=== PATIENT | female | born 2000 | race Caucasian/White ===

== ENCOUNTER 2018-02-26 10:58 | Emergency (ER) | payer OTHER ==
[2018-02-26 11:54] LABS: BASO % 0.2 % (0.0-1.0); EOS # 0.1 10^3/uL (0.0-0.50); EOS % 1.3 % (0.0-3.0); HEMATOCRIT 37.1 % (36.0-47.0); HEMOGLOBIN 12.5 g/dl (12.0-15.5); IMMATURE GRANULOCYTE % 0.2 % (0-3.0); LYMPH # 1.9 10^3/uL (1.5-6.5); LYMPH % 40.5 % (24.0-44.0); MEAN CORPUSCULAR HGB CONC 33.7 g/dl (32.0-36.5); MEAN CORPUSCULAR VOLUME 89.2 fl (80.0-96.0); MONO # 0.3 10^3/uL (0.0-0.8); MONO % 6.9 % (0.0-5.0); NEUTROPHILS # 2.4 10^3/uL (1.8-7.7); NEUTROPHILS % 50.9 % (36.0-66.0); PLATELET COUNT, AUTOMATED 226 10^3/uL (150-450); RED BLOOD COUNT 4.16 10^6/uL (4.00-5.40); RED CELL DISTRIBUTION WIDTH 12.6 % (11.5-14.5); WHITE BLOOD COUNT 4.8 10^3/uL (4.0-10.0)
[2018-02-26 12:32] LABS: ALBUMIN 4.2 GM/DL (3.2-5.2); ALBUMIN/GLOBULIN RATIO 1.35 (1.00-1.93); ALKALINE PHOSPHATASE 50 U/L (45-117); ALT/SGPT 23 U/L (12-78); ANION GAP 9 MEQ/L (8-16); AST/SGOT 20 U/L (7-37); BILIRUBIN,DIRECT 0.1 MG/DL (0.0-0.2); BILIRUBIN,TOTAL 0.3 MG/DL (0.2-1.0); BLOOD UREA NITROGEN 11 MG/DL (7-18); CALCIUM LEVEL 8.7 MG/DL (8.5-10.1); CARBON DIOXIDE LEVEL 28 MEQ/L (21-32); CHLORIDE LEVEL 106 MEQ/L (98-107); CK-MB VALUE MASS < 1.0 NG/ML (<3.6); CPK CREATINE PHOSPHOKINASE 52 U/L (26-192); CREATININE FOR GFR 0.68 MG/DL (0.55-1.30); GLUCOSE, FASTING 68 MG/DL (70-100); LIPASE 167 U/L (73-393); MB/CK RELATIVE INDEX 1.92 (< OR =4); POTASSIUM SERUM 3.9 MEQ/L (3.5-5.1); SODIUM LEVEL 143 MEQ/L (136-145); TOTAL PROTEIN 7.3 GM/DL (6.4-8.2); TROPONIN I < 0.02 NG/ML (< 0.10)
[2018-02-26] MEDS: NS 1,000 ML IV (12:41)
[2018-02-26 13:04] LABS: KETONE, URINE AUTO RFX NEGATIVE (NEGATIVE); LEUKOCYTE ESTERASE UR AUTO RFX NEGATIVE (NEGATIVE); NITRITE, URINE AUTO RFX NEGATIVE (NEGATIVE); RBC, URINE AUTO RFX 1 /HPF (0-3); SPECIFIC GRAVITY UR AUTO RFX 1.017 (1.002-1.035); SQUAM EPITHELIAL CELL UR AURFX 2 /HPF (0-6); WBC, URINE AUTO RFX 1 /HPF (0-3)
[2018-02-26] MEDS: GI COCKTAIL 50ML BTL(HYOSCYAMINE/MAALOX/LIDOCAINE VISCOUS)(1:3:1) PO (13:40)
== END 2018-02-26 14:52 | disposition home or self-care (01) ==
LOC: M ED 10:58
DX: R10.13 Epigastric pain (principal); R42 Dizziness and giddiness; I45.19 Other right bundle-branch block; F17.210 Nicotine dependence, cigarettes, uncomplicated
CPT/HCPCS: 71046

== ENCOUNTER 2018-06-24 09:19 | Emergency (ER) | payer OTHER ==
[~2018-06-24] VITALS: Ht 165.1 cm; Wt 54.5 kg
[2018-06-24 09:20] VITALS: BP 115/58
--- NOTE | 2018-06-24 10:16 | REP ---
Clinical: Trauma. Technique: AP, lateral, bilateral oblique views left hand . Findings: The osseous structures and joint spaces are intact and normal. There is no evidence for acute fracture or dislocation. Surrounding soft tissues are unremarkable. No subcutaneous emphysema or radiodense foreign body. Impression: Normal left hand series . No acute fracture or dislocation. Electronically Signed by Will Prasad MD 06/24/2018 10:08 A
== END 2018-06-24 10:14 | disposition home or self-care (01) ==
LOC: M ED 09:19
DX: S60.222A Contusion of left hand, initial encounter (principal); W10.8XXA Fall (on) (from) other stairs and steps, initial encounter; Y92.89 Other specified places as the place of occurrence of the external cause; F17.210 Nicotine dependence, cigarettes, uncomplicated

== ENCOUNTER 2018-11-24 20:24 | Emergency (ER) | payer OTHER ==
[~2018-11-24] VITALS: Ht 165.1 cm; Wt 59.1 kg
[2018-11-24 20:25] VITALS: BP 114/59
[2018-11-24] MEDS ORDERED: PREN1TAB11 PO (20:31)
[2018-11-24] MEDS ORDERED: KEFL500C17 PO (21:04)
[2018-11-24] MEDS ORDERED: CEPHALEXIN 500 MG CAP PO ONE (21:15)
== END 2018-11-24 21:17 | disposition home or self-care (01) ==
LOC: M ED 20:24
DX: O23.41 Unspecified infection of urinary tract in pregnancy, first trimester (principal); Z3A.01 Less than 8 weeks gestation of pregnancy; Z79.899 Other long term (current) drug therapy

== ENCOUNTER 2019-01-11 21:00 | Emergency (ER) | payer OTHER ==
[~2019-01-11] VITALS: Ht 165.1 cm; Wt 56.8 kg
[~2019-01-11 21:00] MED LIST: KEFL500C17 PO; PREN1TAB11 PO
[2019-01-11] MEDS ORDERED: UNIS25TA3 (21:06)
[2019-01-11] MEDS ORDERED: NS 1,000 ML IV ONE (23:00)
[2019-01-11 23:19] LABS: HEMATOCRIT 33.9 % (36.0-47.0); HEMOGLOBIN 11.9 g/dl (12.0-15.5); MEAN CORPUSCULAR HEMOGLOBIN 31.2 pg (27.0-33.0); MEAN CORPUSCULAR HGB CONC 35.1 g/dl (32.0-36.5); MEAN CORPUSCULAR VOLUME 88.7 fl (80.0-96.0); PLATELET COUNT, AUTOMATED 223 10^3/uL (150-450); RED BLOOD COUNT 3.82 10^6/uL (4.00-5.40); WHITE BLOOD COUNT 9.1 10^3/uL (4.0-10.0)
[2019-01-11 23:24] LABS: APPEARANCE, URINE CLEAR (CLEAR); BACTERIA, URINE AUTO 1+ (NEGATIVE); BILIRUBIN, URINE AUTO NEGATIVE (NEGATIVE); BLOOD, URINE BLOOD NEGATIVE (NEGATIVE); COLOR, URINE STRAW (YELLOW); GLUCOSE, URINE (UA) AUTO NEGATIVE (NEGATIVE); KETONE, URINE AUTO NEGATIVE (NEGATIVE); LEUKOCYTE ESTERASE, URINE AUTO NEGATIVE (NEGATIVE); NITRITE, URINE AUTO NEGATIVE (NEGATIVE); PROTEIN, URINE AUTO NEGATIVE (NEGATIVE); RBC, URINE AUTO 1 /HPF (0-3); SPECIFIC GRAVITY URINE AUTO 1.004 (1.002-1.035); SQUAMOUS EPITHELIAL CELL UR AU 2 /HPF (0-6); UROBILINOGEN, URINE AUTO 0.2 mg/dL (0.0-2.0); WBC, URINE AUTO 2 /HPF (0-3)
[2019-01-11 23:50] LABS: ALBUMIN 3.5 GM/DL (3.2-5.2); ALT/SGPT 27 U/L (12-78); BILIRUBIN,TOTAL < 0.1 MG/DL (0.2-1.0); BLOOD UREA NITROGEN 6 MG/DL (7-18); CALCIUM LEVEL 8.9 MG/DL (8.5-10.1); CARBON DIOXIDE LEVEL 26 MEQ/L (21-32); CHLORIDE LEVEL 107 MEQ/L (98-107); CREATININE FOR GFR 0.48 MG/DL (0.55-1.30); GLUCOSE, FASTING 99 MG/DL (70-100); POTASSIUM SERUM 3.6 MEQ/L (3.5-5.1); SODIUM LEVEL 139 MEQ/L (136-145); TOTAL PROTEIN 6.5 GM/DL (6.4-8.2)
--- NOTE | 2019-01-11 23:51 | REPVR ---
EXAM: US First Trimester, Transabdominal EXAM DATE/TIME: 01/11/2019 11:39 PM CLINICAL HISTORY: 18 years old, female; Injury or trauma; Fall; Initial encounter; Sprain or strain; Lower; ; Additional info: 13wks preg/fall/ back pn/cramping TECHNIQUE: Imaging protocol: Real-time transabdominal obstetrical ultrasound of the maternal pelvis and a first trimester , less than 14 weeks 0 days, with image documentation. COMPARISON: No relevant prior studies available. FINDINGS: GESTATION: Gestation: Single gestational sac in the uterus. Single fetus demonstrated. Heart rate: cardiac activity is 160 beats per minute. Placenta: Posterior placenta. Amniotic fluid: Amniotic and chorionic fluid are normal for gestational age. BIOMETRY: Estimated gestational age: Gestational age based on LMP of 10/06/2018 is 13 weeks 6 days which is compatible with ultrasound measurements. Banner-Rump length: Banner-rump length measures 7.9 cm. MATERNAL: Uterus: Unremarkable. Cervix: Unremarkable. Right adnexa: Unremarkable. Left adnexa: Unremarkable. Intraperitoneal: No intraperitoneal free fluid. IMPRESSION: Unremarkable scan at 13 weeks 6 days with concordant clinical dates and ultrasound measurements. Detailed anatomic structural survey can be performed between 19 and 20 weeks if clinically desired. Electronically signed by: Raúl Brooks On 01/11/2019 23:51:04 PM
[2019-01-12 01:02] VITALS: BP 118/65
== END 2019-01-12 01:08 | disposition home or self-care (01) ==
LOC: M ED 21:00
DX: S30.0XXA Contusion of lower back and pelvis, initial encounter (principal); W01.10XA Fall on same level from slipping, tripping and stumbling with subsequent striking against unspecified object, initial encounter; Y92.830 Public park as the place of occurrence of the external cause; Y93.31 Activity, mountain climbing, rock climbing and wall climbing; Y99.9 Unspecified external cause status; Z3A.13 13 weeks gestation of pregnancy; R10.2 Pelvic and perineal pain; R10.13 Epigastric pain; Z79.899 Other long term (current) drug therapy

== ENCOUNTER 2019-02-06 19:49 | Emergency (ER) | payer OTHER ==
[~2019-02-06] VITALS: Ht 165.1 cm; Wt 57.7 kg
[~2019-02-06 19:49] MED LIST changes: +UNIS25TA3
[2019-02-06] MEDS ORDERED: PYRI25TA2 PO (19:56)
[2019-02-06] MEDS ORDERED: METOCLOPRAMIDE INJ 10MG/2ML VIAL (J2765) IV ONE (20:30)
[2019-02-06] MEDS ORDERED: NS 1,000 ML IV ONE (20:30)
[2019-02-06 20:55] LABS: HEMATOCRIT 35.1 % (36.0-47.0); HEMOGLOBIN 12.2 g/dl (12.0-15.5); MEAN CORPUSCULAR HGB CONC 34.8 g/dl (32.0-36.5); MEAN CORPUSCULAR VOLUME 89.3 fl (80.0-96.0); PLATELET COUNT, AUTOMATED 242 10^3/uL (150-450); RED BLOOD COUNT 3.93 10^6/uL (4.00-5.40); WHITE BLOOD COUNT 7.6 10^3/uL (4.0-10.0)
[2019-02-06 21:27] LABS: BLOOD UREA NITROGEN 6 MG/DL (7-18); CARBON DIOXIDE LEVEL 25 MEQ/L (21-32); CHLORIDE LEVEL 106 MEQ/L (98-107); CREATININE FOR GFR 0.46 MG/DL (0.55-1.30); GLUCOSE, FASTING 73 MG/DL (70-100); POTASSIUM SERUM 3.9 MEQ/L (3.5-5.1); SODIUM LEVEL 138 MEQ/L (136-145)
[2019-02-06 22:09] LABS: APPEARANCE, URINE CLEAR (CLEAR); BACTERIA, URINE AUTO 1+ (NEGATIVE); BILIRUBIN, URINE AUTO NEGATIVE (NEGATIVE); BLOOD, URINE BLOOD NEGATIVE (NEGATIVE); COLOR, URINE YELLOW (YELLOW); GLUCOSE, URINE (UA) AUTO NEGATIVE (NEGATIVE); KETONE, URINE AUTO 1+ mg/dL (NEGATIVE); LEUKOCYTE ESTERASE, URINE AUTO NEGATIVE (NEGATIVE); MUCUS, URINE SMALL (NEGATIVE); NITRITE, URINE AUTO NEGATIVE (NEGATIVE); PROTEIN, URINE AUTO NEGATIVE (NEGATIVE); RBC, URINE AUTO 0 /HPF (0-3); SPECIFIC GRAVITY URINE AUTO 1.012 (1.002-1.035); SQUAMOUS EPITHELIAL CELL UR AU 2 /HPF (0-6); UROBILINOGEN, URINE AUTO 0.2 mg/dL (0.0-2.0); WBC, URINE AUTO 1 /HPF (0-3)
[2019-02-06 22:16] VITALS: BP 123/58
[2019-02-06] MEDS ORDERED: ZOFR4TAB16 PO (22:37)
== END 2019-02-06 22:49 | disposition home or self-care (01) ==
LOC: M ED 19:49
DX: O21.9 Vomiting of pregnancy, unspecified (principal); Z87.891 Personal history of nicotine dependence; Z3A.17 17 weeks gestation of pregnancy
CPT/HCPCS: 80048; 81001; 85027; 96361; 96374; 99284; J2765

== ENCOUNTER 2019-04-04 04:08 | Outpatient (CLI) | payer OTHER ==
[~2019-04-04] VITALS: Ht 165.1 cm; Wt 65.4 kg
[~2019-04-04 04:08] MED LIST changes: +PYRI25TA2 PO; +ZOFR4TAB16 PO
--- NOTE | 2019-04-04 05:41 | IPNPDOC ---
Text Note Date of Service The patient was seen on 04/04/19. NOTE patient is a 18 yo G1 @ 25wks gestation presents with concern for spotting on wipe x 1 and she thinks she passed her mucus plug. Denies cramping/lof. vitals: normal NAD abd: gravid, soft,nt speculum exam: white discharge, no bleeding, cervix visually closed. fht: 135/mod vy/no accel/no decel toco: quiet a/p patient @ 25wks, normal exam. discharge with return precautions. f/u as scheduled. HERMELINDA BABIN DO Apr 04, 2019 05:41
== END 2019-04-04 05:50 | disposition home or self-care (01) ==
LOC: M LDO 04:08
PROVIDERS: ATTEND Obstetrics & Gynecology
DX: O26.852 Spotting complicating pregnancy, second trimester (principal); Z3A.25 25 weeks gestation of pregnancy
CPT/HCPCS: 59025; G0378; G0463

== ENCOUNTER 2019-04-18 09:29 | Outpatient (CLI) | payer OTHER ==
[~2019-04-18] VITALS: Ht 165.1 cm; Wt 67.7 kg
[2019-04-18] MEDS ORDERED: MAPA500T2 PO (10:02)
[2019-04-18 11:03] LABS: APPEARANCE, URINE CLOUDY (CLEAR); BACTERIA, URINE AUTO 1+ (NEGATIVE); BILIRUBIN, URINE AUTO NEGATIVE (NEGATIVE); BLOOD, URINE BLOOD 3+ (NEGATIVE); COLOR, URINE YELLOW (YELLOW); GLUCOSE, URINE (UA) AUTO 1+ mg/dL (NEGATIVE); KETONE, URINE AUTO NEGATIVE (NEGATIVE); LEUKOCYTE ESTERASE, URINE AUTO 1+ (NEGATIVE); MUCUS, URINE SMALL (NEGATIVE); NITRITE, URINE AUTO NEGATIVE (NEGATIVE); PROTEIN, URINE AUTO 1+ mg/dL (NEGATIVE); RBC, URINE AUTO TNTC /HPF (0-3); SPECIFIC GRAVITY URINE AUTO 1.018 (1.002-1.035); SQUAMOUS EPITHELIAL CELL UR AU 3 /HPF (0-6); UROBILINOGEN, URINE AUTO 0.2 mg/dL (0.0-2.0); WBC, URINE AUTO 50 /HPF (0-3)
[2019-04-18 11:18] LABS: HEMATOCRIT 33.2 % (36.0-47.0); MEAN CORPUSCULAR HEMOGLOBIN 30.3 pg (27.0-33.0); MEAN CORPUSCULAR HGB CONC 33.1 g/dl (32.0-36.5); MEAN CORPUSCULAR VOLUME 91.5 fl (80.0-96.0); PLATELET COUNT, AUTOMATED 236 10^3/uL (150-450); RED BLOOD COUNT 3.63 10^6/uL (4.00-5.40); WHITE BLOOD COUNT 9.1 10^3/uL (4.0-10.0)
[2019-04-18] MEDS ORDERED: RHOGAM 300 MCG (1500 IU) INJ (J2790) IM ONE (13:00)
[2019-04-18 13:09] LABS: CHLAMYDIA DNA AMPLIFICATION NEGATIVE (NEGATIVE); GC DNA AMPLIFICATION NEGATIVE (NEGATIVE)
--- NOTE | 2019-04-18 17:52 | IPNPDOC ---
Obstetrical Progress Note Date of Service Apr 18, 2019 Subjective Late Entry 18yo at 27+5wks by LMP of [id number], EDC [id number], presents to LND triage with c/o vaginal bleeding. Ms. Amaya states that she noticed a dime sized clot in the toilet after she voided this morning. She denies recent intercourse, abnormal discharge or vaginal pain, denies dysuria. She does report intermittent cramping x2 days. She denies any further bleeding. She reports +FM, denies LOF/CTX. Ms. Amaya also reports that she went to the lab a [facility] this morning for her routine 3rd trimester labs. She states that she fasted for her 1 hour glucose and passed out during the blood draw portion. They were unable to complete the rhogam panel there and she desires to have administered here, if possible. She denies any other syncopal episodes and feels better now. Objective O: VSS FHR 135, moderate variability, + accels, no decels No CTX present SSE: copius white discharge present and adhere to vaginal mena, sample collected for wet prep; cervix visually closed, no bleeding noted UA: +WBCs and blood, cloudy in appearance; UC pending; will treat based on results from UC d/t pt being asymptomatic for UTI WP: + for yeast CBC: H/H 11.0/33.2, Platelets 236, WBCs 9.1 Type and Screen: A Negative, negative antibodies Rhogam panel collected Assessment and Plan Status: Reassuring Additional Comments A: 18yo at 27+5wks with Reactive NST, no active vaginal bleeding, + yeast infection, and dehydration P: Rhogam administered in triage Rx for Diflucan and 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
== END 2019-04-18 13:36 | disposition home or self-care (01) ==
LOC: M LDO 09:29
PROVIDERS: ATTEND Registered Nurse Maternal Newborn
DX: O26.853 Spotting complicating pregnancy, third trimester (principal); O26.893 Other specified pregnancy related conditions, third trimester; E86.0 Dehydration; O99.283 Endocrine, nutritional and metabolic diseases complicating pregnancy, third trimester; B37.9 Candidiasis, unspecified; Z3A.37 37 weeks gestation of pregnancy
CPT/HCPCS: 36415; 59025; 81001; 85027; 86850; 86900; 86901; 87086; 87210; 87491; 87591; 96372; G0378; G0463; J2790

== ENCOUNTER 2019-04-28 17:50 | Outpatient (CLI) | payer OTHER ==
[~2019-04-28] VITALS: Ht 165.1 cm; Wt 69.1 kg
[~2019-04-28 17:50] MED LIST changes: +MAPA500T2 PO
[2019-04-28 18:06] VITALS: BP 109/56
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
== END 2019-04-28 18:45 | disposition home or self-care (01) ==
LOC: M LDO 17:50
PROVIDERS: ATTEND Registered Nurse Maternal Newborn
DX: Z04.3 Encounter for examination and observation following other accident (principal); Z3A.29 29 weeks gestation of pregnancy
CPT/HCPCS: G0378; G0463

== ENCOUNTER → 2019-06-30 | Outpatient (CLI) | payer OTHER ==
[~2019-06-30] VITALS: Ht 167.6 cm; Wt 76.8 kg
[~2019-06-30] MED LIST changes: +PEPC1TAB5 PO
[2019-06-30 21:56] VITALS: BP 129/69
[2019-06-30 22:14] VITALS: BP 118/58
[2019-06-30 22:28] VITALS: BP 120/72
[2019-06-30 23:19] LABS: HEMATOCRIT 33.9 % (36.0-47.0); HEMOGLOBIN 10.6 g/dl (12.0-15.5); MEAN CORPUSCULAR HEMOGLOBIN 27.3 pg (27.0-33.0); MEAN CORPUSCULAR HGB CONC 31.3 g/dl (32.0-36.5); MEAN CORPUSCULAR VOLUME 87.4 fl (80.0-96.0); PLATELET COUNT, AUTOMATED 210 10^3/uL (150-450); RED BLOOD COUNT 3.88 10^6/uL (4.00-5.40); WHITE BLOOD COUNT 8.7 10^3/uL (4.0-10.0)
[2019-06-30 23:25] LABS: TOTAL PROTEIN,RANDOM URINE 13.2 MG/DL (0.0-12.0)
[2019-06-30 23:50] LABS: ALT/SGPT 16 U/L (12-78); BILIRUBIN,TOTAL 0.2 MG/DL (0.2-1.0); LDH LACTATE DEHYDROGENASE 161 U/L (84-246); URIC ACID 4.4 MG/DL (2.6-6.0)
[2019-07-01 00:17] LABS: CREATININE,RANDOM URINE 80.1 MG/DL
--- NOTE | 2019-07-01 11:51 | HPE ---
DATE OF ADMISSION: 06/30/2019 18-year-old 1, para 0, last menstrual period (LMP) 10/06/2018, estimated date of confinement (EDC) 07/13/2019 at 38 and 2 gestation with a history of right upper quadrant pain only when she lies down, when she stands up it resolves. She has had a headache for about 24 hours; however, she does not take much for it. Her risk factors: She has major anxiety issues, Rh negative. Labs are negative, HIV negative, hepatitis negative, RPR negative, rubella immune. Varicella immune. Urine was positive for staph. Gonorrhea and chlamydia are negative. 1-hour glucose 101. GBS is negative. Blood pressure is 123/84, respirations are 16, pulse 84, temperature 98.7. Repeat blood pressure was 118/58, respirations were 18, pulse was 76. Her chemistry was normal. Uric acid 4.4. Protein-creatinine ratio is 0.165, hemoglobin 10.6, hematocrit 33.9 and platelets were 210. Anemia. As noted, the patient is on vitamins. Urine was 1.015, pH 6, and trace protein. She is in no distress. Symphysis fundus height is 38, vertex presenting. Category one strip. No contractions. No vaginal discharge or bleeding. The patient's headache was resolving, is very anxious to go and have something to eat. She has an appointment on 07/06/2019. Precautions were given. The patient was discharged undelivered.
== END ==
LOC: M LDO 21:34
PROVIDERS: ATTEND Obstetrics & Gynecology
DX: O26.893 Other specified pregnancy related conditions, third trimester (principal); R51 Headache; O99.343 Other mental disorders complicating pregnancy, third trimester; F41.9 Anxiety disorder, unspecified; O99.89 Other specified diseases and conditions complicating pregnancy, childbirth and the puerperium; R10.11 Right upper quadrant pain; Z3A.38 38 weeks gestation of pregnancy
CPT/HCPCS: 36415; 59025; 82247; 82565; 82570; 83615; 84156; 84450; 84460; 84550; 85027; G0378; G0463

== ENCOUNTER 2019-07-06 20:07 | Outpatient (CLI) | payer OTHER ==
[~2019-07-06] VITALS: Ht 167.6 cm; Wt 77.2 kg
[2019-07-06 20:25] VITALS: BP 139/87
[2019-07-06 22:14] VITALS: BP 141/86
[2019-07-06 22:15] VITALS: BP 134/82
--- NOTE | 2019-07-06 22:18 | IPNPDOC ---
Text Note Date of Service The patient was seen on 07/06/19. NOTE patient is a 18 yo G1 @ 39wks gestation presents with regular contractions. denies LOF/VB. +FM. vitals normal nad abd: nd, soft, nt, cephalic by hetal's le: no edema/erythema/tenderness fht: 125/mod vy/pos accel/no decel toco: ctx q 6mins ce: /-2, unchanged from check 2 hrs before. a/p patient @ 39wks gestation, not in labor. discussed return precautions. f/u PRN. DO TALYA Chavez LUAT N. DO Jul 06, 2019 22:18
== END 2019-07-06 22:25 | disposition home or self-care (01) ==
LOC: M LDO 20:07
PROVIDERS: ATTEND Obstetrics & Gynecology
DX: O26.893 Other specified pregnancy related conditions, third trimester (principal); O99.343 Other mental disorders complicating pregnancy, third trimester; F41.9 Anxiety disorder, unspecified; Z3A.39 39 weeks gestation of pregnancy
CPT/HCPCS: 59025; G0378; G0463

== ENCOUNTER 2019-07-09 01:54 | Inpatient (IN) | payer OTHER ==
[~2019-07-09] VITALS: Ht 167.6 cm; Wt 76.7 kg
[2019-07-09] VITALS (29 sets, daily range): BP systolic 107–147; BP diastolic 53–85
[2019-07-09] MEDS ORDERED: LACTATED RINGER'S 1000 ML IV STA (03:03)
--- NOTE | 2019-07-09 03:41 | HPEPDOC ---
Obstetrical History & Physical General Date of Admission Jul 09, 2019 at 02:55 History of Present Illness Elizabeth is a 18yo with SIUP at 39w3d by lmp c/w 8wk u/s presenting for compl aint of regular, painful ctx that sometimes "make her shake" because they are so painful. No LOF, no vaginal bleeding. Good movement. No f/c/n/v/OLIVER/SOB/CP. Chief Complaint: Contractions, term Information Provided By: Patient Care Care: Good Care Dating Final EDC: Jul 13, 2019 Final EDC by: LMP, 1st trimester (US) Antepartum Course Diagnos(e)s Tobacco use (1/2ppd) prior to , Rh negative (rhogam received 04/16), anemia taking iron/vitamin C, excessive weight gain (44lb), asymptomatic bacteruria (methicillin resistant staph sapr.) treated with negative REYES. Height (inches): 65 Pre- weight (lbs.): 125 Admission Weight (lbs.): 169 Change in Weight (lbs.): 44 Past Medical History Past Obstetrical History : Past Obstetrical History: Primgravida [employer] History: History of STD (chlamydia 2017) Past Medical History Medical History benign Surgical History: Tonsilectomy Family History Significant Family History: No pertinent family hx Social History Marital Status: Psychosocial History: Anxiety (in high school) * Smoker: former Smoker Alcohol: Denies Drugs: denies Imunizations Tdap status: current Influenza Status: current Allergies Coded Allergies: No Known Allergies (Unverified , 02/06/19) Medications Scheduled Famotidine (Pepcid) 20 Mg Tablet, 20 MG PO BID Vit No.124/Iron/Folic ( Vitamin Tablet) 1 Each Tablet, 1 TAB PO DAILY Scheduled PRN Acetaminophen (Mapap) 500 Mg Tablet, 1,000 MG PO for PAIN LEVEL 1-5 Miscellaneous Medications Doxylamine Succinate (Unisom Sleep Aid) 25 Mg Tablet Pyridoxine HCl (Vitamin B6) (Vitamin B-6) 25 Mg Tablet, 25 MG PO Physical Examination Physical Examination GENERAL: Alert and oriented times three. ABDOMEN: Gravid and non-tender to touch. FETUS: Is vertex (VTX) by sterile vaginal examination (SVE) per RN EXTREMITIES: No edema of BLE Vital Signs/I&O Vital Signs Date Time Temp Pulse Resp B/P (MAP) Pulse Ox O2 Delivery O2 Flow Rate FiO2 07/09/19 02:13 98.5 74 18 116/62 (80) Pertinent Laboratoy Data Blood Type: A- RBC Antibody Screen: Negative HIV: Negative Hepatitis B: Negative Hepatitis C: Unknown Rapid Plasma Reagin: Nonreactive Rubella: Immune Varicella: Immune Chlamydia/Gonorrhea: Negative Group B Streptococcus: Negative Glucose Tolerance Test: 101 Anatomy Ultrasound Ultrasound Date: Feb 23, 2019 Placenta Location: Anterior Normal Anatomy: Yes Placenta Previa: No Steroid Therapy Steroid Therapy: No Vaginal Examination Dilation: 4 cm Effacement: 90% Station: -2 Cervical Consistency: Soft Cervical Position: Anterior Presentation: Cephalic presentation Assessment Heart Rate (FHR): 130 Variability: Moderate Accelerations: Positive Decelerations: None Tocometer Contractions: Yes Frequency: regular, every 2-5 min. Duration: greater than 60 seconds Strength: palpated as moderate Assessment/Plan Assessment Elizabeth is a 18yo with SIUP at 39w3d by lmp c/w 8wk u/s in active labor with SCE 4-5/90/-2 having ctx q3-5min. Cat I FHRT. Vitals wnl, benign exam. PMhx and course significant for: Tobacco use (1/2ppd) prior to , Rh negative (rhogam received 04/16), anemia taking iron/vitamin C, excessive weight gain (44lb). Asymptomatic bacteruria (methicillin resistant staph sapr.) with negative REYES. Plan Admit and orient. 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 Diet: clear liquids Group B Streptococcus (GBS) negative Labs and intravenous (IV) per unit protocol. Lactated Ringers (LR): Bolus 500 mL then saline lock Anticipate normal spontaneous delivery () Candidate for epidural in active labor MD Judy De La Cruz Katrina D MD Jul 09, 2019 03:41
[2019-07-09] MEDS ORDERED: BUTORPHANOL 2 MG/ML INJ (J0595) IV PRN (03:45)
[2019-07-09 03:51] LABS: HEMATOCRIT 35.6 % (36.0-47.0); HEMOGLOBIN 11.5 g/dl (12.0-15.5); MEAN CORPUSCULAR HEMOGLOBIN 27.4 pg (27.0-33.0); MEAN CORPUSCULAR HGB CONC 32.3 g/dl (32.0-36.5); PLATELET COUNT, AUTOMATED 251 10^3/uL (150-450); RED BLOOD COUNT 4.19 10^6/uL (4.00-5.40); WHITE BLOOD COUNT 11.9 10^3/uL (4.0-10.0)
[2019-07-09 04:14] LABS: ALT/SGPT 18 U/L (12-78); BILIRUBIN,TOTAL 0.2 MG/DL (0.2-1.0); CREATININE FOR GFR 0.52 MG/DL (0.55-1.30); LDH LACTATE DEHYDROGENASE 256 U/L (84-246); URIC ACID 4.6 MG/DL (2.6-6.0)
[2019-07-09] MEDS ORDERED: FENTANYL 2MCG/ML ROPIVACAINE 0.2% IN 0.9% NACL 100ML IVBAG As Ordered ONE (04:25)
[2019-07-09] MEDS: FENTANYL/ROPIVACAINE/NACL BAG 100 ML EPIDURAL SCH ×2 (05:05→15:30)
[2019-07-09] MEDS ORDERED: EPIDURAL/PCA KEYS XX PRN (05:30)
[2019-07-09] MEDS ORDERED: ONDANSETRON 4MG/2ML VIAL (J2405) IV PRN (05:30)
[2019-07-09] MEDS ORDERED: REFRIGERATOR IV KEYS XX PRN (05:30)
[2019-07-09] MEDS ORDERED: EPIDURAL COMMENT XX SCH (05:30)
[2019-07-09] MEDS ORDERED: LACTATED RINGER'S 1000 ML IV PRN (05:30)
[2019-07-09] MEDS ORDERED: diphenhydrAMINE INJ 50MG/ML VIAL (J1200) IV PRN (05:30)
[2019-07-09] MEDS ORDERED: NALOXONE INJ 0.4 MG/1 ML VIAL (J2310) IV PRN (05:30)
[2019-07-09] MEDS ORDERED: ePHEDrine SULFATE 25 MG/5 ML(5MG/ML) SYRINGE IV PRN (05:30)
--- NOTE | 2019-07-09 08:32 | IPNPDOC ---
Text Note Date of Service The patient was seen on 07/09/19. NOTE Intrapartum Note Pt comfortable since epidural, was able to sleep some. Vitals wnl, afebrile Cat I FHRT with bl 125, +accels, -decels, mod vy [place]: ctx q3-5min SCE: 6/100/-1, AROM performed with clear fluid noted Plan to closely observe, recheck in 2-4hr or earlier as indicated Safe to proceed Dr. Linda Kim MD VS,Sandeep, I+O VS, Sandeep I+O Laboratory Tests 07/09/19 03:35 Vital Signs Date Time Temp Pulse Resp B/P (MAP) Pulse Ox O2 Delivery O2 Flow Rate FiO2 07/09/19 08:14 75 18 136/73 (94) 07/09/19 07:13 98.0 99 Room Air Linda Kim MD Jul 09, 2019 08:32
--- NOTE | 2019-07-09 10:39 | IPNPDOC ---
Text Note Date of Service The patient was seen on 07/09/19. NOTE Intrapartum Note Pt doing well, feeling some rectal pressure. Vitals wnl, afebrile Cat I FHRT with bl 120, +accels, -decels, mod vy [place]: ctx q2-4min SCE 9/C/0 Continue to closely monitor Plan to re-check in 1-2hr or earlier as indicated Safe to proceed Dr. Linda Kim MD VS,Sandeep, I+O VS, Sandeep, I+O Laboratory Tests 07/09/19 03:35 Vital Signs Date Time Temp Pulse Resp B/P (MAP) Pulse Ox O2 Delivery O2 Flow Rate FiO2 07/09/19 09:44 71 18 120/71 (87) 07/09/19 08:35 98.0 07/09/19 07:13 99 Room Air Linda Kim MD Jul 09, 2019 10:39
[2019-07-09] MEDS ORDERED: OXYTOCIN 30 UNITS IN 0.9% NaCl 500ML IV BAG (J2590) As Ordered ONE (10:42)
[2019-07-09] MEDS ORDERED: IBUPROFEN 600 MG TAB PO PRN (12:30)
[2019-07-09] MEDS ORDERED: ACETAMINOPHEN 500 MG TAB PO PRN (12:30)
[2019-07-09] MEDS ORDERED: DIBUCAINE 1% OINTMENT 30GM TOP PRN (12:30)
[2019-07-09] MEDS ORDERED: ACETAMINOPHEN TAB 650MG DOSE (2X325MG) PO PRN (12:30)
[2019-07-09] MEDS ORDERED: RHOGAM 300 MCG (1500 IU) INJ (J2790) IM SCH (12:30)
[2019-07-09] MEDS ORDERED: MEASLES,MUMPS,RUBELLA VACCINE INJ (MMR-II) (90707) SC SCH (12:30)
[2019-07-09] MEDS ORDERED: OXYTOCIN DRIP 30 UNITS in IV 1 EA IV SCH (12:30)
[2019-07-09] MEDS ORDERED: DOCUSATE SODIUM 100 MG CAP PO PRN (12:30)
--- NOTE | 2019-07-09 12:31 | DNPDOC ---
[facility] Delivery Note Delivery Note DATE OF DELIVERY: 07/09/2019 PREDELIVERY DIAGNOSIS: 39w3d gestation and labor. POST DELIVERY DIAGNOSIS: Delivered. PROCEDURE: Spontaneous vaginal delivery JIRA DEVELOPER: Dr. Linda Kim MD ANESTHESIA: epidural ESTIMATED BLOOD LOSS: 200 mL. FINDINGS: 6 pound 3 ounce (2820g) male infant, Score 8/9, nuchal cord times 1. DELIVERY SUMMARY: Elizabeth is a 18yo [id number] s/p uncomplicated at 1207 on 07/09/2019 after presenting in active labor at 39w3d. She was 4cm on presentation and had AROM, clear, after epidural. She progressed on her own to C/C/+2 at which point she began pushing. Good maternal effort. Infant's head delivered OA, restituted SOM. One loose nuchal cord reduced. Right compound hand noted, left anterior shoulder delivered followed by posterior shoulder and corpus. Infant was vigorous with spontaneous cry, placed on maternal abdomen and cord was clamped x2 and cut by FOB after approximately 2 minutes. 's nose and mouth were suctioned with bulb suction. Apgars 8/9. Cord blood obtained for MBT A neg. With traction on the umbilical cord and uterine massage, placenta delivered spontaneously and intact with 3 vessel centrally inserted cord. More uterine massage was performed and fundus was then firm at u-2cm. IV pitocin given per protocol. Inspection of perineum and vagina revealed small bilateral labial lacerations repaired in routine fashion with 3-0 vicryl with excellent reapproximation and total hemostasis noted. All counts correct x2. Mom and infant were doing well when I left the room. MD Judy De La Cruz Katrina D MD Jul 09, 2019 12:31
[2019-07-10] MEDS: FENTANYL/ROPIVACAINE/NACL BAG 100 ML EPIDURAL SCH (01:30)
[2019-07-10 06:06] VITALS: BP 120/56
[2019-07-10] MEDS: IBUPROFEN 800 MG TAB PO PRN ×2 (07:22→17:26)
[2019-07-10] MEDS: PRENATAL VITAMINS CHEWABLE TABLET PO SCH (07:22)
--- NOTE | 2019-07-10 08:12 | IPNPDOC ---
Progress Note Date of Service: Jul 10, 2019 Day#: 1 Progress Note PPD 1 SUBJECT: Elizabeth is a 18yo [id number] doing well on PPD 1 s/p uncomplicated on 07/09 at 1207 after presenting in active labor at 39w3d. She has been ambulating, voiding spontaneously without issue and tolerating regular diet. Bottle feeding by choice. Reports lochia is like a heavy period. No f/c/n/v/CP/SOB. OBJECTIVE: VITAL SIGNS: Within normal limits, afebrile. Alert and oriented times three. Abdomen: Fundus firm at U-2. Soft, NTTP. Extremities: trace edema of BLE, no pain with palpation of calves ASSESSMENT: Elizabeth is a 18yo [id number] doing well on PPD 1 s/p uncomplicated on 07/09 at 1207 after presenting in active labor at 39w3d. Vitals within normal limits, afebrile, hemodynamically stable with no evidence of infection. PLAN: 1. Routine care 2. Tylenol and Motrin for pain. 3. Encourage good hydration and ambulation. 4. Undecided on contraception, discussed different methods and will re-address at 6wk pp visit 5. Likely discharge home tomorrow if meeting all milestones Dr. Linda Kim MD VS, I&O, 24H, Fishbone Vital Signs/I&O Vital Signs Date Time Temp Pulse Resp B/P (MAP) Pulse Ox O2 Delivery O2 Flow Rate FiO2 07/10/19 06:06 98.9 75 17 120/56 (77) 99 Room Air I&O- Last 24 Hours up to 6 AM 07/10/19 06:00 Intake Total 1181.1 ml Output Total 1325 ml Balance -143.9 ml Linda Kim MD Jul 10, 2019 08:12
[2019-07-10 17:45] VITALS: BP 130/84
[2019-07-11] MEDS: IBUPROFEN 800 MG TAB PO PRN (03:36)
[2019-07-11 06:00] VITALS: BP 122/61
--- NOTE | 2019-07-11 08:10 | IPNPDOC ---
Progress Note Date of Service: Jul 11, 2019 Day#: 2 Progress Note SUBJECT: She is a 18yo [id number] doing well on PPD 2 s/p uncomplicated wi thout post vaginal laceration, doing well day # 2. She has been ambulating, voiding spontaneously without issue and tolerating regular diet. Bottle feeding without issue. Reports lochia is less than a normal period. Patient is ambulating well. OBJECTIVE: VITAL SIGNS: Within normal limits, afebrile. Alert and oriented times three. Breast without erythema and nontender. Breath sounds clear to auscultation. Heart rate: Regular rate and rhythm, no murmurs, rubs or gallops. Abdomen: Fundus firm at U-2. Soft, NTTP. Minimal lochia. Lower extremeties with mild edema and nontender ASSESSMENT: She is a 18yo [id number] doing well on PPD 2 s/p uncomplicated , doing well on day 2. Vitals within normal limits, afebrile, hemodynamically stable with no evidence of infection. PLAN: 1. Discharge to home today. 2. Tylenol and Motrin for pain. 3. Unsure for contraception for now. 4. Routine PP visit in 6 weeks in clinic. 5. Discussed return precautions at length. VS, I&O, 24H, Fishbone Vital Signs/I&O Vital Signs Date Time Temp Pulse Resp B/P (MAP) Pulse Ox O2 Delivery O2 Flow Rate FiO2 07/11/19 06:00 98.6 75 16 122/61 (81) 07/10/19 06:06 99 Room Air Cleopatra Dean MD Jul 11, 2019 08:10
[2019-07-11] MEDS ORDERED: IBUP80TA PO (08:14)
[2019-07-11] MEDS ORDERED: DOCU100C16 PO (08:14)
[2019-07-11] MEDS ORDERED: DIBU10OI TOP (08:14)
[2019-07-11] MEDS: PRENATAL VITAMINS CHEWABLE TABLET PO SCH (08:41)
== END 2019-07-11 12:45 | disposition home or self-care (01) | DRG 807 ==
LOC: M LDO 01:54 → M LDI 02:55 → M OBS 14:19
PROVIDERS: ADMIT Obstetrics & Gynecology; ATTEND Obstetrics & Gynecology
PROC: 10E0XZZ Delivery of Products of Conception, External Approach (ICD-10-PCS; principal; 2019-07-09)
PROC: 10907ZC Drainage of Amniotic Fluid, Therapeutic from Products of Conception, Via Natural or Artificial Opening (ICD-10-PCS; 2019-07-09)
PROC: 0HQ9XZZ Repair Perineum Skin, External Approach (ICD-10-PCS; 2019-07-09)
DX: O99.02 Anemia complicating childbirth (principal); Z37.0 Single live birth; Z3A.39 39 weeks gestation of pregnancy; D64.9 Anemia, unspecified; O69.81X0 Labor and delivery complicated by cord around neck, without compression, not applicable or unspecified; O64.5XX0 Obstructed labor due to compound presentation, not applicable or unspecified; O70.0 First degree perineal laceration during delivery

== ENCOUNTER 2020-07-10 20:01 | Emergency (ER) | payer OTHER ==
[~2020-07-10] VITALS: Ht 167.6 cm; Wt 59.1 kg
[2020-07-10 20:01] VITALS: BP 119/90
[~2020-07-10 20:01] MED LIST changes: +DIBU10OI TOP; +DOCU100C16 PO; +IBUP80TA PO
--- OUTSIDE RECORDS SUMMARY | 2020-07-10 20:11 | CCD ---
Author Author [facility] Organization [facility] Address Unknown Phone Unavailable Support Name Relationship Address Phone SELF EMPLOYMENT Next Of Kin [address] [place] [address] UE Next Of Kin Unknown Unavailable [employer] Next Of [place] [address] [address] [place] [address] [place] [address] STEENDENISHA ARRIAZANER Next Of Kin [address] [place] [address] Re-disclosure Warning The records that you are about to access may contain information from federally-assisted alcohol or drug abuse programs. If such information is present, then the following federally mandated warning applies: This information has been disclosed to you from records protected by federal confidentiality rules (42 CFR part 2). The federal rules prohibit you from making any further disclosure of this information unless further disclosure is expressly permitted by the written consent of the person to whom it pertains or as otherwise permitted by 42 CFR part 2. A general authorization for the release of medical or other information is NOT sufficient for this purpose. The Federal rules restrict any use of the information to criminally investigate or prosecute any alcohol or drug abuse patient.The records that you are about to access may contain highly sensitive health information, the redisclosure of which is protected by Article 27-F of the [facility] Public Health law. If you continue you may have access to information: Regarding HIV / AIDS; Provided by facilities licensed or operated by the [facility] Office of Mental Health; or Provided by the [facility] Office for People With Developmental Disabilities. If such information is present, then the following [facility] mandated warning applies: This information has been disclosed to you from confidential records which are protected by state law. State law prohibits you from making any further disclosure of this information without the specific written consent of the person to whom it pertains, or as otherwise permitted by law. Any unauthorized further disclosure in violation of state law may result in a fine or senior care sentence or both. A general authorization for the release of medical or other information is NOT sufficient authorization for further disc losure. Insurance Providers Payer name Policy type / Coverage type Policy ID Covered republican ID Covered republican's relationship to yao Policy Yao Plan Information [facility] [id number] [facility] [id number] SELF PAY O UNAVAILABLE S UNAVAILA BLE [facility] [id number] Results ID Date Data Source [id number] 07/01/2020 11:05:00 AM EST [facility] Name Value Range Interpretation Code Description Data Nadine rce(s) Supporting Document(s) SARS coronavirus 2 RNA Not Detected [facility] This lab was ordered by [facility] Laboratory and reported by [facility]. Procedure
[2020-07-10 20:46] LABS: BASO % 0.5 % (0.0-1.0); EOS # 0.2 10^3/uL (0.0-0.5); EOS % 2.2 % (0.0-3.0); HEMOGLOBIN 13.5 g/dl (12.0-15.5); LYMPH # 2.2 10^3/uL (1.5-5.0); LYMPH % 25.5 % (24.0-44.0); MEAN CORPUSCULAR HEMOGLOBIN 28.8 pg (27.0-33.0); MEAN CORPUSCULAR HGB CONC 32.9 g/dl (32.0-36.5); MEAN CORPUSCULAR VOLUME 87.6 fl (80.0-96.0); MONO # 0.5 10^3/uL (0.0-0.8); MONO % 5.1 % (2.0-8.0); NEUTROPHILS # 5.8 10^3/uL (1.5-8.5); NEUTROPHILS % 66.4 % (36.0-66.0); PLATELET COUNT, AUTOMATED 284 10^3/uL (150-450); RED BLOOD COUNT 4.68 10^6/uL (4.00-5.40); WHITE BLOOD COUNT 8.8 10^3/uL (4.0-10.0)
--- OUTSIDE RECORDS SUMMARY | 2020-07-10 20:48 | CCD ---
Author Author [facility] Organization [facility] Address Unknown Phone Unavailable Support Name Relationship Address Phone SELF EMPLOYMENT Next Of Kin [address] [place] [address] [employer] Next Of Kin Unknown Unavailable [employer] Next Of [place] [address] [place] [address] STEENDENISHA ARRIAZANER Next Of Kin [address] [place] [address] Re-disclosure Warning The records that you are [...] is protected by Article 27-F of the [facility] Public Health law. If you continue you may have access to information: Regarding HIV / AIDS; Provided by facilities licensed or operated by the [facility] Office of Mental Health; or Provided by the [facility] Office for People With Developmental Disabilities. If such information is present, then the following [facility] mandated warning applies: This information has been [...] law may result in a fine or mcc sentence or both. A general authorization for the release of medical or other information is NOT sufficient authorization for further disc losure. Insurance Providers Payer name Policy type / Coverage type Policy ID Covered green party ID Covered green party's relationship to yao Policy Yao Plan Information [facility] [id number] [facility] [id number] SELF PAY O UNAVAILABLE S UNAVAILA BLE [facility] [id number] Results ID Date Data Source [id number] 07/01/2020 11:05:00 AM EST [facility] Name Value Range Interpretation Code Description Data Nadine rce(s) Supporting Document(s) SARS coronavirus 2 RNA Not Detected [facility] This lab was ordered by [facility] Laboratory and reported by [facility]. Procedure
== END 2020-07-10 20:56 | disposition home or self-care (01) ==
LOC: M ED 20:01
DX: R10.2 Pelvic and perineal pain (principal); Z86.19 Personal history of other infectious and parasitic diseases; F17.200 Nicotine dependence, unspecified, uncomplicated

== ENCOUNTER 2021-02-06 20:24 | Emergency (ER) | payer OTHER ==
[~2021-02-06] VITALS: Ht 167.6 cm; Wt 66.8 kg
[~2021-02-06 20:24] MED LIST changes: -DIBU10OI TOP; +DIBU28OI2 TOP
[2021-02-06 20:25] VITALS: BP 129/68
[2021-02-06] MEDS ORDERED: NITR100C2 (20:36)
[2021-02-06] MEDS ORDERED: UNIS25TA3 (20:36)
[2021-02-06] MEDS ORDERED: PREN27TA3 (20:36)
[2021-02-06] MEDS ORDERED: B-650TAB2 (20:36)
== END 2021-02-06 22:07 | disposition left against medical advice (07) ==
LOC: M ED 20:24
DX: Z53.29 Procedure and treatment not carried out because of patient's decision for other reasons (principal)

== ENCOUNTER 2021-05-02 03:21 | Inpatient (IN) | payer OTHER ==
[2021-05-02] VITALS (28 sets, daily range): BP systolic 105–140; BP diastolic 53–79
[~2021-05-02] VITALS: Ht 167.6 cm; Wt 73.6 kg
[~2021-05-02 03:21] MED LIST changes: +B-650TAB2; +NITR100C2; +PREN27TA3
[2021-05-02] MEDS ORDERED: PEPC1TAB5 PO (03:47)
[2021-05-02] MEDS ORDERED: HOME MED LIST COMPLETE! XX SCH (03:50)
[2021-05-02] MEDS ORDERED: LACTATED RINGER'S 1000 ML IV STA (04:20)
[2021-05-02] MEDS ORDERED: LR 1,000 ML IV SCH (04:20)
[2021-05-02] MEDS ORDERED: LIDOCAINE 1% MDV 20ML VIAL INFIL PRN (04:20)
[2021-05-02] MEDS ORDERED: OXYTOCIN DRIP 30 UNITS in IV 1 EA IV PRN ×4 (04:20)
[2021-05-02] MEDS ORDERED: METHYLERGONOVINE MALEATE 0.2 MG/ML VIAL (J2210) IM PRN (04:20)
[2021-05-02] MEDS ORDERED: TRANEXAMIC ACID INJection 1,000 MG in NS 100 ML IV PRN (04:20)
[2021-05-02] MEDS ORDERED: CARBOPROST TROMETHAMINE 250 MCG/ML AMP IM PRN (04:20)
[2021-05-02 05:05] LABS: HEMATOCRIT 31.1 % (36.0-47.0); HEMOGLOBIN 9.8 g/dl (12.0-15.5); MEAN CORPUSCULAR HEMOGLOBIN 25.3 pg (27.0-33.0); MEAN CORPUSCULAR HGB CONC 31.5 g/dl (32.0-36.5); MEAN CORPUSCULAR VOLUME 80.2 fl (80.0-96.0); PLATELET COUNT, AUTOMATED 228 10^3/uL (150-450); RED BLOOD COUNT 3.88 10^6/uL (4.00-5.40); WHITE BLOOD COUNT 10.6 10^3/uL (4.0-10.0)
[2021-05-02] MEDS ORDERED: FENTANYL 2MCG/ML ROPIVACAINE 0.2% IN 0.9% NACL 100ML IVBAG As Ordered ONE (05:25)
[2021-05-02] MEDS ORDERED: diphenhydrAMINE 50MG/ML VIAL (J1200) IV PRN (07:20)
[2021-05-02] MEDS ORDERED: FENTANYL/ROPIVACAINE/NACL BAG 100 ML EPIDURAL SCH (07:20)
[2021-05-02] MEDS ORDERED: ONDANSETRON 4MG/2ML VIAL IV PRN (07:20)
[2021-05-02] MEDS ORDERED: ePHEDrine SULFATE 25 MG/5 ML(5MG/ML) SYRINGE IV PRN (07:20)
[2021-05-02] MEDS ORDERED: EPIDURAL COMMENT XX SCH (07:20)
[2021-05-02] MEDS ORDERED: LACTATED RINGER'S 1000 ML IV PRN (07:20)
[2021-05-02] MEDS ORDERED: REFRIGERATOR IV KEYS XX PRN (07:20)
[2021-05-02] MEDS ORDERED: NALOXONE INJ 0.4MG/1ML VIAL (J2310 PER 1MG) IV PRN (07:20)
[2021-05-02] MEDS ORDERED: EPIDURAL/PCA KEYS XX PRN (07:20)
[2021-05-02] MEDS ORDERED: OXYTOCIN INJ 10 UNITS/ML VIAL (J2590) As Ordered ONE (10:07)
[2021-05-02 12:33] LABS: CORD GAS ABE A -1.3; CORD GAS HCO3 A 24.3 MEQ/L; CORD GAS O2 SAT A 57.6 %; CORD GAS PCO2 A 43.8 mmHg; CORD GAS PH A 7.362 UNITS; CORD GAS PO2 A 23.3 mmHg; CORD GAS SBC A 22.3 MEQ/L; CORD GAS TCO2 A 25.6 MEQ/L
[2021-05-02 12:35] LABS: CORD GAS ABE V -1.9; CORD GAS HCO3 V 25.8 MEQ/L; CORD GAS O2 SAT V 21.6 %; CORD GAS PCO2 V 54.7 mmHg; CORD GAS PH V 7.291 UNITS; CORD GAS PO2 V 12.7 mmHg; CORD GAS SBC V 20.9 MEQ/L; CORD GAS TCO2 V 27.4 MEQ/L
[2021-05-02] MEDS ORDERED: ANUSOL HC CREAM 30GM TOP PRN (13:45)
[2021-05-02] MEDS ORDERED: DOCUSATE SODIUM 100MG CAPSULE PO PRN (13:45)
[2021-05-02] MEDS ORDERED: OXYTOCIN DRIP 30 UNITS in IV 1 EA IV ONE (13:45)
[2021-05-02] MEDS ORDERED: DIBUCAINE 1% OINTMENT 30GM TOP PRN (13:45)
[2021-05-02] MEDS ORDERED: METHYLERGONOVINE MALEATE 0.2 MG TAB PO PRN (13:45)
[2021-05-02] MEDS ORDERED: MEASLES,MUMPS,RUBELLA VACCINE INJ (MMR-II) (90707) SC SCH (13:45)
[2021-05-02] MEDS ORDERED: MOM 30ML SUSPENSION UDC PO PRN (13:45)
[2021-05-02] MEDS ORDERED: OXYTOCIN INJ 10 UNITS/ML VIAL (J2590) IV ONE (13:45)
[2021-05-02] MEDS ORDERED: ACETAMINOPHEN TAB 650MG DOSE (2X325MG) PO PRN (13:45)
[2021-05-02] MEDS ORDERED: RHOGAM 300 MCG (1500 IU) INJ (J2790) IM SCH (13:45)
[2021-05-02] MEDS ORDERED: ACETAMINOPHEN 500 MG TAB PO PRN (13:45)
[2021-05-02] MEDS: IBUPROFEN 600MG TAB PO PRN (16:28)
[2021-05-03 06:00] VITALS: BP 126/67
[2021-05-03 07:25] LABS: HEMATOCRIT 29.8 % (36.0-47.0); HEMOGLOBIN 9.3 g/dl (12.0-15.5); MEAN CORPUSCULAR HGB CONC 31.2 g/dl (32.0-36.5); MEAN CORPUSCULAR VOLUME 80.1 fl (80.0-96.0); PLATELET COUNT, AUTOMATED 189 10^3/uL (150-450); RED BLOOD COUNT 3.72 10^6/uL (4.00-5.40); WHITE BLOOD COUNT 11.5 10^3/uL (4.0-10.0)
[2021-05-03] MEDS: IBUPROFEN 600MG TAB PO PRN (07:50)
[2021-05-03] MEDS ORDERED: PRENATAL VITAMINS CHEWABLE TABLET PO SCH (09:00)
== END 2021-05-03 13:27 | disposition home or self-care (01) | DRG 807 ==
LOC: M LDO 03:21 → M LDI 04:15 → M OBS 16:27
PROVIDERS: ADMIT Advanced Practice Midwife; ATTEND Obstetrics & Gynecology
PROC: 10E0XZZ Delivery of Products of Conception, External Approach (ICD-10-PCS; principal; 2021-05-02)
DX: O80 Encounter for full-term uncomplicated delivery (principal); Z37.0 Single live birth; Z3A.39 39 weeks gestation of pregnancy